=== PATIENT | female | born 1955 | race Caucasian/White ===

== ENCOUNTER 2017-03-20 08:53 | Emergency (ER) | payer OTHER ==
[~2017-03-20] VITALS: Ht 165.1 cm; Wt 102.0 kg
[~2017-03-20 08:53] MED LIST: COZA100T PO; DILT180C PO
[2017-03-20 08:58] VITALS: BP 185/100; PULSE 86; RESP 20; TEMP 98.3; O2SAT 95
[2017-03-20] MEDS ORDERED: LOSA100T PO (09:12)
[2017-03-20] MEDS ORDERED: DILT120C50 PO (09:12)
[2017-03-20] MEDS ORDERED: SYNT112T PO (09:12)
[2017-03-20] MEDS ORDERED: ACETAMINOPHEN/HYDROcodone 325 MG/5 MG TAB PO ONE (09:15)
[2017-03-20] MEDS ORDERED: HYDR-4107 PO (09:20)
--- NOTE | 2017-03-20 09:28 | PD ---
HPI Chief Complaint: Musculoskeletal Complaint Time Seen by Provider: 09:10 Travel History International Travel<30 days: No Contact w/Intl Traveler<30days: No Traveled to known affect area: No History of Present Illness HPI 62-year-old female presents to the emergency room for evaluation of left-sided rib pain. Patient first injured herself 7 days ago after trip and fall at work. She fell to the left with her arm underneath her. Has had persistent, severe left rib cage pain since then. She went to an urgent care center the day of injury and had x-rays that showed no obvious fracture. She was discharged with prescriptions for Flexeril and tramadol. She ran out of the medication 3 days ago. Pain is exacerbated with any motion of the left upper extremity. She tried to follow-up with Work[employer] Compensation but they are closed due to the holiday weekend. She went back to urgent care center today and they told her that they could not refill her prescription for pain so she should come to the emergency room. Patient reports mildly productive cough since injury. Denies difficulty breathing or shortness of breath but reports pain with breathing. Denies fever, chills, nausea, and vomiting. PFSH Past Medical History Hypertension: Yes Thyroid Disease: Yes Past Surgical History Surgical History: No Previous Surgery Social History Alcohol Use: No Tobacco Use: Yes (1/2 ppd) Substance Use: No Allergies-Medications (Allergen,Severity, Reaction): Coded Allergies: No Known Allergies (Verified Adverse Reaction, Unknown, 03/20/17) Reported Meds & Prescriptions Reported Meds & Active Scripts Active Hydrocodone-Acetaminophen 5-300 Mg Tab 1 Tab PO Q6H PRN Reported Synthroid (Levothyroxine Sodium) 112 Mcg Tab 112 Mcg PO DAILY Losartan (Losartan Potassium) 100 Mg Tab 100 Mg PO DAILY Diltiazem CD 24 HR 120 Mg Caper 120 Mg PO DAILY Review of Systems Except as stated in HPI: all other systems reviewed are Neg Physical Exam Narrative GENERAL: Well-nourished, well-developed female in no acute distress. Afebrile. Ambulatory. SKIN: Focused skin assessment warm/dry. No ecchymosis. HEAD: Normocephalic. EYES: No scleral icterus. No injection or drainage. NECK: Supple, trachea midline. No JVD or lymphadenopathy. CARDIOVASCULAR: Regular rate and rhythm without murmurs, gallops, or rubs. RESPIRATORY: Breath sounds equal bilaterally. No accessory muscle use. Mild rhonchi especially in the left lower lung field. CHEST: Nontender throughout without deformity or crepitus. No retractions or use of accessory muscles. Data Data Last Documented VS Vital Signs Date Time Temp Pulse Resp B/P (MAP) Pulse Ox O2 Delivery O2 Flow Rate FiO2 03/20/17 10:10 148/99 (115) 03/20/17 08:58 98.3 86 20 95 Orders Orders Ribs, Uni (W/Exp Cxr-Min 3vw) (03/20/17 ) Acetamin-Hydrocod 325-5 Mg ([place] 5-325 (03/20/17 09:15) Resp Incentive Spirometry (03/20/17 ) MDM Medical Decision Making Medical Screen Exam Complete: Yes Emergency Medical Condition: Yes Medical Record Reviewed: Yes Differential Diagnosis Fracture, pneumonia, pneumothorax Narrative Course 62-year-old female presents to the emergency room for evaluation of left rib cage pain after trip and fall 1 week ago. Patient went to an urgent care center after injury and had a normal x-ray. She was discharged with pain medication and she just ran out. Reports mild productive cough but no shortness of breath or difficulty breathing. She is well-appearing in the emergency room. Appears to be in pain but in no distress. No increased work of breathing. Lung sounds equal bilaterally with rhonchi in the bases. Vital signs stable. X-rays performed today show no obvious rib fractures or pneumothorax. There is an 11 mm opacity in the right lung for which patient will be treated with azithromycin. She was given copy of report. Patient given Lortab in the emergency room and discharged with prescription for the same. She was also given incentive spirometer. Told to follow up with workers comp this week or return for worsening symptoms. She understands and agrees to plan. Diagnosis Primary Impression: Rib pain on left side Referrals: Primary Care Physician Additional Instructions: Incentive spirometer as directed. Azithromycin as directed, until gone. Take Lortab as directed, as needed for pain. Do not drink alcohol or drive taking this medication. Take ibuprofen with food as directed, as needed for pain. Apply ice to the affected area for 20 minutes at a time, as needed for pain and swelling. Follow-up with a primary care physician. Return to the emergency room for worsening symptoms. Med/Other Pt SpecificInfo: Prescription(s) given Scripts Hydrocodone-Acetaminophen (Hydrocodone-Acetaminophen) 5-300 Mg Tab 1 TAB PO Q6H Y for PAIN, #12 TAB 0 Refills Prov: Saeid Israel MD 03/20/17 Disposition: 01 DISCHARGE HOME Condition: Tayler Flynn Mar 20, 2017 09:28
[2017-03-20 10:10] VITALS: BP 148/99
--- NOTE | 2017-03-20 10:15 | RADRPT ---
EXAM DATE/TIME: 03/20/2017 09:19 [facility] COMPARISON: No previous studies available for comparison. INDICATIONS : Fall. Left lower rib pain. MEDICAL HISTORY : None. SURGICAL HISTORY : None. ENCOUNTER: Initial ACUITY: 3 days PAIN SCORE: 8/10 LOCATION: Left lower chest FINDINGS: Multiple views of the left ribs were performed. There is no evidence of displaced fracture. No dest ructive lesions or areas of periosteal thickening are seen. Expiratory view of the chest is negative for pneumothorax. The mediastinal structures are midline. There is an 11 mm opacity in the lateral right midlung near the intersection of the anterior 3rd and posterior 6th ribs. CONCLUSION: 1. No left rib fracture or pneumothorax seen. 2. 11 mm faint opacity in the mid right lung. No prior chest x-rays at this institution to assess wh ether this is new or old. Berry Bowers MD on March 20, 2017 at 10:11 Board Certified Radiologist. This report was verified electronically.
[2017-03-20] MEDS ORDERED: AZIT250T3 PO (10:24)
== END 2017-03-20 10:37 | disposition home or self-care (01) ==
LOC: PHEFT 08:53
DX: R07.81 Pleurodynia (principal); R05 Cough
CPT/HCPCS: 71101; 94150; 99283